=== PATIENT | male | born 1960 | race Caucasian/White ===

== ENCOUNTER → 2017-05-28 | Outpatient (CLI) | payer BC, MEDICARE ==
--- NOTE | 2017-05-28 12:46 | Diagnostic Imaging Report ---
PROCEDURE: MRI lumbar spine. TECHNIQUE: Multiplanar, multisequence MRI of the lumbar spine was performed without contrast. INDICATION: Back pain. FINDINGS: The alignment of the posterior spinal line is satisfactory. The vertebral body heights are preserved. Disc heights are also preserved. There is disc desiccation at the upper and lower lumbar spine levels. There are vertebral body hemangiomas seen with no suspicious marrow lesion identified. The cauda equina and conus medullaris appear grossly unremarkable. T12/L1: No disc herniation. No facet hypertrophy. No spinal canal or foraminal stenosis. L1/2: There is a minimal disc bulge. There is mild facet hypertrophy. No central canal, lateral recess, or foraminal stenosis is seen. L2/3: There is minimal disc herniation. There is mild to moderate facet hypertrophy. No central canal, lateral recess, or foraminal stenosis. L3/4: No disc herniation. There is moderate facet hypertrophy. No central canal or lateral recess stenosis. There is bilateral mild foraminal stenosis. L4/5: There is a diffuse disc bulge, asymmetric to the right side and [id number]-[id number] facet arthropathy seen. No central canal stenosis. There is bilateral lateral recess stenosis, moderate to severe on the right and mild to moderate on the left. In the right lateral recess, there is encroachment upon the descending right L5 nerve root. The foramina demonstrate moderate stenosis on the left and ajzn-fu-ftdhpedh stenosis on the right. L5/S1: There is a broad-based central disc protrusion with a superimposed right paracentral extruded disc that has a cranial migration component migrating cranially about 1.5 cm. There is no central canal stenosis. There is no significant lateral recess stenosis on either side. There is, however, displacement of the right descending S1 nerve root in the right lateral recess posteriorly by the disc herniation. The neural foramina demonstrate hglj-[id number] stenosis on the right and moderate stenosis on the left. The left neural foramen demonstrates a 5 mm perineural cyst. IMPRESSION: There is obodzaeo-kd-[id number] right lateral recess stenosis at the L4/5 level encroaching upon the descending right L4 nerve root. Other findings as above. Dictated by: Dictated on workstation # [id number]
--- NOTE | 2017-05-28 12:49 | Diagnostic Imaging Report ---
Multiplanar multisequence MRI of the lumbar spine performed without intravenous contrast. INDICATION: Thoracic pain. FINDINGS: There is satisfactory alignment of the thoracic spine. The vertebral body heights are preserved. The disc heights are also preserved. There is mild disc desiccation at multiple levels, and there are anterior osteophytes noted in the mid and lower thoracic spine. Minimal reactive marrow changes in the lower thoracic spine adjacent to the endplates are seen with no suspicious focal marrow lesion. The spinal cord has normal caliber, contour, and signal. There is mild disc protrusion with a slightly prominent left paracentral component at T7-T8 without associated spinal canal stenosis. It is flattening the anterior left side of the spinal cord however, although plenty of CSF is seen posterior to the cord at this level. There is a right paracentral disc protrusion also seen. There is no spinal canal stenosis at any level. The neuroforamina are patent. IMPRESSION: There is slightly prominent left paracentral disc protrusion at T7-T8 level, abutting and minimally flattening the anterior left side aspect of the spinal cord at this level. There is no compression of the cord, however, with CSF seen posterior to the cord at this level. Dictated by: Dictated on workstation # [id number]
== END ==
LOC: RAD 09:29
PROVIDERS: ATTEND Orthopaedic Surgery
DX: M51.24 Other intervertebral disc displacement, thoracic region (principal)
CPT/HCPCS: 72146; 72148

== ENCOUNTER 2023-03-12 09:14 | Outpatient (RCR) | payer BC, MEDICARE | END 2023-03-13 | disposition home or self-care (01) | PROVIDERS: ATTEND Family Medicine | DX: M48.061 Spinal stenosis, lumbar region without neurogenic claudication (principal) ==

== ENCOUNTER 2023-03-23 13:50 | Outpatient (RCR) | payer BC, MEDICARE | END 2023-04-13 | disposition home or self-care (01) | PROVIDERS: ATTEND Family Medicine | DX: M48.061 Spinal stenosis, lumbar region without neurogenic claudication (principal); I10 Essential (primary) hypertension ==